=== PATIENT | male | born 1975 | race Caucasian/White ===

== ENCOUNTER 2022-02-01 12:00 | Inpatient (IN) | payer BC, SELFPAY ==
[~2022-02-01] VITALS: Ht 188 cm; Wt 125.8 kg
[2022-02-01 15:10] VITALS: BP 165/93
[2022-02-01] MEDS ORDERED: methocarbamoL 500 MG TAB PEG PRN (15:45)
[2022-02-01] MEDS ORDERED: RAMELTEON 8 MG TAB (ROZEREM) PEG PRN (15:45)
[2022-02-01] MEDS ORDERED: GLUCAGON INJ 1MG VIAL SC PRN (15:45)
[2022-02-01] MEDS ORDERED: ACETAMINOPHEN 325 MG/10.15 ML UDC GT PRN ×2 (15:45→16:35)
[2022-02-01] MEDS ORDERED: GLUCOSE 4GM CHEW TABLET PO PRN (15:45)
[2022-02-01] MEDS ORDERED: DEXTROSE 50% 50 ML SYRINGE IV PRN (15:45)
[2022-02-01] MEDS ORDERED: oxyCODONE 5MG TAB PEG PRN (15:45)
[2022-02-01] MEDS: REMEDY PHYTOPLEX Z-GUARD PASTE 113GM TUBE (FROM STOREROOM PRODUCT) TOP SCH ×2 (16:29→21:00)
[2022-02-01] MEDS ORDERED: OMEP40CA5 PO (16:31)
[2022-02-01] MEDS ORDERED: FURO20TA2 PO (16:31)
[2022-02-01] MEDS ORDERED: TRES1INJ2 SQ (16:31)
[2022-02-01] MEDS ORDERED: LISI40TA4 PO (16:31)
[2022-02-01] MEDS ORDERED: JARD1TAB PO (16:31)
[2022-02-01] MEDS ORDERED: ALBU8.5H INH (16:31)
[2022-02-01] MEDS: ACETAMINOPHEN 325 MG/10.15 ML UDC GT SCH ×2 (16:35→21:18)
[2022-02-01] MEDS ORDERED: LOPI600T PO (16:52)
[2022-02-01] MEDS ORDERED: ATOR80TA59 PO (16:52)
[2022-02-01] MEDS ORDERED: LOVE1INJ SC (16:52)
[2022-02-01] MEDS ORDERED: NICOINH INH (16:52)
[2022-02-01] MEDS ORDERED: ZOVI5CRE4 TOP (16:52)
[2022-02-01] MEDS ORDERED: CLOP75TA2 PO (16:52)
[2022-02-01] MEDS ORDERED: NICO21DI38 TOP (16:52)
[2022-02-01] MEDS ORDERED: MUCI600T31 PO (16:52)
[2022-02-01] MEDS ORDERED: AMLO1TAB25 PO (16:52)
[2022-02-01] MEDS ORDERED: TGTSUS2 PO (16:52)
[2022-02-01] MEDS ORDERED: MINE3.5O12 OU (16:52)
[2022-02-01] MEDS ORDERED: ASPI-161 PO (16:52)
[2022-02-01] MEDS ORDERED: METO1TAB7 PO (16:52)
[2022-02-01] MEDS ORDERED: RA M10TA PO (16:52)
[2022-02-01] MEDS ORDERED: VENL150C43 PO (16:52)
[2022-02-01] MEDS ORDERED: METH-1164 PO (16:52)
[2022-02-01] MEDS ORDERED: HOME MED LIST COMPLETE! XX SCH (16:55)
[2022-02-01] MEDS: INSULIN LISPRO (NovoLOG) PER UNIT SC SCH ×2 (17:11→21:00)
[2022-02-01] MEDS: SUCRALFATE SUSP 1GM/10ML UD PEG SCH ×2 (17:27→21:16)
[2022-02-01] MEDS: MAGIC MOUTHWASH SUSPENSION BTL SSP SCH (17:27)
[2022-02-01 19:23] VITALS: BP 138/95
[2022-02-01] MEDS: COMBIVENT RESPIMAT 100-20MCG INHALER 4GM INH SCH (19:57)
[2022-02-01] MEDS ORDERED: COMBIVENT RESPIMAT 100-20MCG INHALER 4GM INH SCH (20:00)
[2022-02-01] MEDS: RAMELTEON 8 MG TAB (ROZEREM) PEG SCH ×2 (21:00→21:16)
[2022-02-01] MEDS: VENLAFAXINE 37.5 MG TAB PEG SCH (21:16)
[2022-02-01] MEDS: METOPROLOL TART 50 MG TAB PEG SCH (21:16)
[2022-02-01] MEDS: MECLIZINE 12.5 MG TAB PEG SCH (21:16)
[2022-02-01] MEDS: LEVEMIR (INSULIN DETEMIR) 1 UNITS/0.01ML SC SCH (21:18)
[2022-02-01] MEDS: POLYVINYL ALCOHOL OPHTH SOLN 15 ML(LIQUITEARS) OU SCH (21:18)
[2022-02-02 05:28] VITALS: BP 165/79
[2022-02-02] MEDS: COMBIVENT RESPIMAT 100-20MCG INHALER 4GM INH SCH ×4 (05:37→20:00)
[2022-02-02 07:21] LABS: BASO # 0.1 10^3/uL (0.0-0.2); BASO % 0.9 % (0.0-1.0); EOS # 0.2 10^3/uL (0.0-0.5); EOS % 2.1 % (0.0-3.0); HEMOGLOBIN 15.1 g/dl (13.5-17.5); LYMPH # 2.2 10^3/uL (1.5-5.0); LYMPH % 21.4 % (24.0-44.0); MEAN CORPUSCULAR HEMOGLOBIN 27.8 pg (27.0-33.0); MEAN CORPUSCULAR HGB CONC 31.5 g/dl (32.0-36.5); MEAN CORPUSCULAR VOLUME 88.4 fl (80.0-96.0); MONO # 0.9 10^3/uL (0.0-0.8); MONO % 8.9 % (2.0-8.0); NEUTROPHILS # 6.8 10^3/uL (1.5-8.5); NEUTROPHILS % 66.2 % (36.0-66.0); PLATELET COUNT, AUTOMATED 326 10^3/uL (150-450); RED BLOOD COUNT 5.43 10^6/uL (4.30-6.10); WHITE BLOOD COUNT 10.2 10^3/uL (4.0-10.0)
[2022-02-02 07:45] LABS: ALBUMIN 3.2 GM/DL (3.2-5.2); ALT/SGPT 49 U/L (12-78); BILIRUBIN,TOTAL 0.7 MG/DL (0.2-1.0); BLOOD UREA NITROGEN 14 MG/DL (7-18); CALCIUM LEVEL 11.8 MG/DL (8.5-10.1); CARBON DIOXIDE LEVEL 34 MEQ/L (21-32); CHLORIDE LEVEL 103 MEQ/L (98-107); CREATININE FOR GFR 0.78 MG/DL (0.70-1.30); GLOMERULAR FILTRATION RATE > 60.0 (>60); GLUCOSE, FASTING 131 MG/DL (70-100); POTASSIUM SERUM 4.6 MEQ/L (3.5-5.1); SODIUM LEVEL 140 MEQ/L (136-145); TOTAL PROTEIN 6.8 GM/DL (6.4-8.2)
[2022-02-02] MEDS: LEVEMIR (INSULIN DETEMIR) 1 UNITS/0.01ML SC SCH ×2 (08:41→20:09)
[2022-02-02] MEDS: ENOXAPARIN 40MG/0.4ML SYRINGE (J1650 PER 10MG) SC SCH (08:42)
[2022-02-02] MEDS: INSULIN LISPRO (NovoLOG) PER UNIT SC SCH ×4 (08:42→20:10)
[2022-02-02] MEDS: MAGIC MOUTHWASH SUSPENSION BTL SSP SCH ×3 (08:42→16:38)
[2022-02-02] MEDS: MECLIZINE 12.5 MG TAB PEG SCH ×3 (08:42→20:08)
[2022-02-02] MEDS: OMEPRAZOLE SUSPENSION 20MG 10ML ORAL SYRINGE PEG SCH (08:42)
[2022-02-02] MEDS: ASPIRIN 81 MG CHEW TABLET PEG SCH (08:43)
[2022-02-02] MEDS: VENLAFAXINE 37.5 MG TAB PEG SCH ×2 (08:43→20:08)
[2022-02-02] MEDS: CLOPIDOGREL 75 MG TAB PEG SCH (08:43)
[2022-02-02] MEDS: LORATADINE 10 MG TAB PEG SCH (08:43)
[2022-02-02] MEDS: ACETAMINOPHEN 325 MG/10.15 ML UDC GT SCH ×3 (08:43→20:14)
[2022-02-02] MEDS: SUCRALFATE SUSP 1GM/10ML UD PEG SCH ×4 (08:43→20:08)
[2022-02-02] MEDS: FUROSEMIDE 20 MG TAB PO SCH (08:44)
[2022-02-02] MEDS: ATORVASTATIN 20 MG TAB PEG SCH (08:44)
[2022-02-02] MEDS: NICOTINE 21MG/24HR 1 EA TRANSDERMAL TD SCH (08:45)
[2022-02-02] MEDS: METOPROLOL TART 50 MG TAB PEG SCH ×2 (08:45→20:09)
[2022-02-02] MEDS: REMEDY PHYTOPLEX Z-GUARD PASTE 113GM TUBE (FROM STOREROOM PRODUCT) TOP SCH ×4 (08:45→20:10)
[2022-02-02] MEDS: POLYVINYL ALCOHOL OPHTH SOLN 15 ML(LIQUITEARS) OU SCH ×3 (08:45→20:09)
[2022-02-02] MEDS: TIOTROPIUM INHALER/CAPSULE (SPIRIVA) INH SCH (11:32)
[2022-02-02 14:00] VITALS: BP 147/91
[2022-02-02] MEDS ORDERED: traZODone 25MG PER 1/2 TABLET PO PRN (16:50)
[2022-02-02 19:29] VITALS: BP 178/108
[2022-02-02] MEDS: traZODone 25MG PER 1/2 TABLET PEG SCH (20:08)
[2022-02-02] MEDS: guaiFENesin SYRUP 200MG 10ML UDC PEG PRN (20:08)
[2022-02-03 05:04] VITALS: BP 168/103
[2022-02-03 06:50] LABS: BASO # 0.1 10^3/uL (0.0-0.2); BASO % 0.5 % (0.0-1.0); EOS # 0.2 10^3/uL (0.0-0.5); EOS % 2.3 % (0.0-3.0); HEMATOCRIT 45.8 % (42.0-52.0); HEMOGLOBIN 14.7 g/dl (13.5-17.5); LYMPH # 2.2 10^3/uL (1.5-5.0); LYMPH % 21.5 % (24.0-44.0); MEAN CORPUSCULAR HGB CONC 32.1 g/dl (32.0-36.5); MEAN CORPUSCULAR VOLUME 87.2 fl (80.0-96.0); MONO # 0.9 10^3/uL (0.0-0.8); MONO % 8.2 % (2.0-8.0); PLATELET COUNT, AUTOMATED 311 10^3/uL (150-450); RED BLOOD COUNT 5.25 10^6/uL (4.30-6.10); WHITE BLOOD COUNT 10.4 10^3/uL (4.0-10.0)
[2022-02-03 07:19] LABS: BLOOD UREA NITROGEN 13 MG/DL (7-18); CARBON DIOXIDE LEVEL 32 MEQ/L (21-32); CHLORIDE LEVEL 104 MEQ/L (98-107); CREATININE FOR GFR 0.69 MG/DL (0.70-1.30); GLOMERULAR FILTRATION RATE > 60.0 (>60); GLUCOSE, FASTING 122 MG/DL (70-100); POTASSIUM SERUM 3.8 MEQ/L (3.5-5.1); SODIUM LEVEL 142 MEQ/L (136-145)
[2022-02-03] MEDS: COMBIVENT RESPIMAT 100-20MCG INHALER 4GM INH SCH ×3 (07:23→19:49)
[2022-02-03] MEDS: TIOTROPIUM INHALER/CAPSULE (SPIRIVA) INH SCH (07:23)
[2022-02-03] MEDS: SUCRALFATE SUSP 1GM/10ML UD PEG SCH ×4 (08:04→21:12)
[2022-02-03] MEDS: guaiFENesin SYRUP 200MG 10ML UDC PEG PRN (08:05)
[2022-02-03] MEDS: MAGIC MOUTHWASH SUSPENSION BTL SSP SCH ×3 (08:05→17:14)
[2022-02-03] MEDS: MECLIZINE 12.5 MG TAB PEG SCH (08:06)
[2022-02-03] MEDS: CLOPIDOGREL 75 MG TAB PEG SCH (08:07)
[2022-02-03] MEDS: METOPROLOL TART 50 MG TAB PEG SCH ×2 (08:07→19:57)
[2022-02-03] MEDS: LORATADINE 10 MG TAB PEG SCH (08:07)
[2022-02-03] MEDS: FUROSEMIDE 20 MG TAB PO SCH (08:07)
[2022-02-03] MEDS: VENLAFAXINE 37.5 MG TAB PEG SCH ×2 (08:07→21:13)
[2022-02-03] MEDS: OMEPRAZOLE SUSPENSION 20MG 10ML ORAL SYRINGE PEG SCH (08:08)
[2022-02-03] MEDS: ASPIRIN 81 MG CHEW TABLET PEG SCH (08:08)
[2022-02-03] MEDS: NICOTINE 21MG/24HR 1 EA TRANSDERMAL TD SCH (08:08)
[2022-02-03] MEDS: ATORVASTATIN 20 MG TAB PEG SCH (08:08)
[2022-02-03] MEDS: INSULIN LISPRO (NovoLOG) PER UNIT SC SCH ×4 (08:09→20:56)
[2022-02-03] MEDS: ENOXAPARIN 40MG/0.4ML SYRINGE (J1650 PER 10MG) SC SCH (08:10)
[2022-02-03] MEDS: POLYVINYL ALCOHOL OPHTH SOLN 15 ML(LIQUITEARS) OU SCH ×3 (08:10→21:13)
[2022-02-03] MEDS: ACETAMINOPHEN 325 MG/10.15 ML UDC GT SCH ×3 (08:20→21:12)
[2022-02-03] MEDS: LEVEMIR (INSULIN DETEMIR) 1 UNITS/0.01ML SC SCH ×2 (08:21→21:13)
[2022-02-03] MEDS: REMEDY PHYTOPLEX Z-GUARD PASTE 113GM TUBE (FROM STOREROOM PRODUCT) TOP SCH ×4 (08:24→21:00)
[2022-02-03 14:00] VITALS: BP 160/101
[2022-02-03 15:00] VITALS: BP 152/88
[2022-02-03] MEDS: DOXYCYCLINE HYCLATE 100MG TABLET PEG SCH ×2 (15:11→21:13)
[2022-02-03] MEDS: LACTOBACILLUS ACIDOPHILUS CAP (BACID) PEG SCH ×2 (15:12→21:13)
[2022-02-03] MEDS: MECLIZINE 25 MG TABLET PEG SCH ×2 (15:12→21:13)
[2022-02-03] MEDS: traZODone 25MG PER 1/2 TABLET PEG SCH (19:58)
[2022-02-03 20:00] VITALS: BP 198/105
[2022-02-03 21:55] VITALS: BP 173/104
[2022-02-03] MEDS: lisinopriL 40MG TAB PO SCH (23:01)
[2022-02-04] VITALS (7 sets, daily range): BP systolic 122–176; BP diastolic 70–118
[2022-02-04] MEDS ORDERED: cloNIDine 0.1MG TABLET PO ONE (01:00)
[2022-02-04] MEDS: INSULIN LISPRO (NovoLOG) PER UNIT SC SCH ×4 (07:30→20:04)
[2022-02-04] MEDS: LEVEMIR (INSULIN DETEMIR) 1 UNITS/0.01ML SC SCH ×2 (07:37→20:46)
[2022-02-04] MEDS: REMEDY PHYTOPLEX Z-GUARD PASTE 113GM TUBE (FROM STOREROOM PRODUCT) TOP SCH ×4 (07:38→20:05)
[2022-02-04] MEDS: NICOTINE 21MG/24HR 1 EA TRANSDERMAL TD SCH (08:32)
[2022-02-04] MEDS: MAGIC MOUTHWASH SUSPENSION BTL SSP SCH ×3 (08:32→16:47)
[2022-02-04] MEDS: VENLAFAXINE 37.5 MG TAB PEG SCH ×2 (08:33→20:45)
[2022-02-04] MEDS: ACETAMINOPHEN 325 MG/10.15 ML UDC GT SCH ×3 (08:33→20:44)
[2022-02-04] MEDS: DOXYCYCLINE HYCLATE 100MG TABLET PEG SCH ×2 (08:33→20:44)
[2022-02-04] MEDS: LACTOBACILLUS ACIDOPHILUS CAP (BACID) PEG SCH ×3 (08:33→20:45)
[2022-02-04] MEDS: OMEPRAZOLE SUSPENSION 20MG 10ML ORAL SYRINGE PEG SCH (08:33)
[2022-02-04] MEDS: ENOXAPARIN 40MG/0.4ML SYRINGE (J1650 PER 10MG) SC SCH (08:34)
[2022-02-04] MEDS: SUCRALFATE SUSP 1GM/10ML UD PEG SCH ×4 (08:34→20:44)
[2022-02-04] MEDS: ASPIRIN 81 MG CHEW TABLET PEG SCH (08:34)
[2022-02-04] MEDS: LORATADINE 10 MG TAB PEG SCH (08:34)
[2022-02-04] MEDS: FUROSEMIDE 20 MG TAB PO SCH (08:34)
[2022-02-04] MEDS: CLOPIDOGREL 75 MG TAB PEG SCH (08:34)
[2022-02-04] MEDS: MECLIZINE 25 MG TABLET PEG SCH ×3 (08:34→20:45)
[2022-02-04] MEDS: METOPROLOL TART 50 MG TAB PEG SCH ×2 (08:34→20:45)
[2022-02-04] MEDS: ATORVASTATIN 20 MG TAB PEG SCH (08:34)
[2022-02-04] MEDS: POLYVINYL ALCOHOL OPHTH SOLN 15 ML(LIQUITEARS) OU SCH ×3 (08:35→20:46)
[2022-02-04] MEDS: TIOTROPIUM INHALER/CAPSULE (SPIRIVA) INH SCH (08:48)
[2022-02-04] MEDS: COMBIVENT RESPIMAT 100-20MCG INHALER 4GM INH SCH ×4 (08:48→20:19)
[2022-02-04] MEDS: lisinopriL 40MG TAB PO SCH (20:45)
[2022-02-04] MEDS: traZODone 25MG PER 1/2 TABLET PEG SCH (20:45)
[2022-02-05 06:00] VITALS: BP 124/78
[2022-02-05] MEDS: TIOTROPIUM INHALER/CAPSULE (SPIRIVA) INH SCH (07:17)
[2022-02-05] MEDS: COMBIVENT RESPIMAT 100-20MCG INHALER 4GM INH SCH ×4 (07:18→20:00)
[2022-02-05] MEDS: REMEDY PHYTOPLEX Z-GUARD PASTE 113GM TUBE (FROM STOREROOM PRODUCT) TOP SCH ×4 (08:20→20:55)
[2022-02-05] MEDS: INSULIN LISPRO (NovoLOG) PER UNIT SC SCH ×4 (08:40→20:55)
[2022-02-05] MEDS: ATORVASTATIN 20 MG TAB PEG SCH (08:40)
[2022-02-05] MEDS: MECLIZINE 25 MG TABLET PEG SCH ×3 (08:40→20:49)
[2022-02-05] MEDS: NICOTINE 21MG/24HR 1 EA TRANSDERMAL TD SCH (08:40)
[2022-02-05] MEDS: LACTOBACILLUS ACIDOPHILUS CAP (BACID) PEG SCH ×3 (08:40→20:51)
[2022-02-05] MEDS: VENLAFAXINE 37.5 MG TAB PEG SCH ×2 (08:41→20:51)
[2022-02-05] MEDS: OMEPRAZOLE SUSPENSION 20MG 10ML ORAL SYRINGE PEG SCH (08:41)
[2022-02-05] MEDS: METOPROLOL TART 50 MG TAB PEG SCH ×2 (08:41→20:50)
[2022-02-05] MEDS: ASPIRIN 81 MG CHEW TABLET PEG SCH (08:41)
[2022-02-05] MEDS: ACETAMINOPHEN 325 MG/10.15 ML UDC GT SCH ×3 (08:41→20:49)
[2022-02-05] MEDS: SUCRALFATE SUSP 1GM/10ML UD PEG SCH ×4 (08:41→20:50)
[2022-02-05] MEDS: DOXYCYCLINE HYCLATE 100MG TABLET PEG SCH ×2 (08:42→20:50)
[2022-02-05] MEDS: FUROSEMIDE 20 MG TAB PO SCH (08:42)
[2022-02-05] MEDS: CLOPIDOGREL 75 MG TAB PEG SCH (08:42)
[2022-02-05] MEDS: LORATADINE 10 MG TAB PEG SCH (08:42)
[2022-02-05] MEDS: LEVEMIR (INSULIN DETEMIR) 1 UNITS/0.01ML SC SCH ×2 (08:42→20:50)
[2022-02-05] MEDS: MAGIC MOUTHWASH SUSPENSION BTL SSP SCH ×3 (08:43→16:31)
[2022-02-05] MEDS: POLYVINYL ALCOHOL OPHTH SOLN 15 ML(LIQUITEARS) OU SCH ×3 (09:00→20:58)
[2022-02-05] MEDS: ENOXAPARIN 40MG/0.4ML SYRINGE (J1650 PER 10MG) SC SCH (09:12)
[2022-02-05 14:00] VITALS: BP 126/80
[2022-02-05 20:00] VITALS: BP 157/86
[2022-02-05] MEDS: zolPIDEM TARTRATE 5 MG TAB PEG SCH (20:50)
[2022-02-05] MEDS: lisinopriL 40MG TAB PO SCH (20:55)
[2022-02-06 06:00] VITALS: BP 152/94
[2022-02-06] MEDS: INSULIN LISPRO (NovoLOG) PER UNIT SC SCH ×4 (07:30→20:26)
[2022-02-06] MEDS: TIOTROPIUM INHALER/CAPSULE (SPIRIVA) INH SCH (07:40)
[2022-02-06] MEDS: COMBIVENT RESPIMAT 100-20MCG INHALER 4GM INH SCH ×4 (07:40→21:16)
[2022-02-06] MEDS: LEVEMIR (INSULIN DETEMIR) 1 UNITS/0.01ML SC SCH ×2 (09:00→20:26)
[2022-02-06] MEDS: NICOTINE 21MG/24HR 1 EA TRANSDERMAL TD SCH (09:14)
[2022-02-06] MEDS: REMEDY PHYTOPLEX Z-GUARD PASTE 113GM TUBE (FROM STOREROOM PRODUCT) TOP SCH ×4 (09:14→20:26)
[2022-02-06] MEDS: ENOXAPARIN 40MG/0.4ML SYRINGE (J1650 PER 10MG) SC SCH (09:15)
[2022-02-06] MEDS: ATORVASTATIN 20 MG TAB PEG SCH (09:15)
[2022-02-06] MEDS: LACTOBACILLUS ACIDOPHILUS CAP (BACID) PEG SCH ×3 (09:16→20:21)
[2022-02-06] MEDS: ASPIRIN 81 MG CHEW TABLET PEG SCH (09:16)
[2022-02-06] MEDS: MECLIZINE 25 MG TABLET PEG SCH ×3 (09:16→20:24)
[2022-02-06] MEDS: OMEPRAZOLE SUSPENSION 20MG 10ML ORAL SYRINGE PEG SCH (09:16)
[2022-02-06] MEDS: ACETAMINOPHEN 325 MG/10.15 ML UDC GT SCH ×3 (09:16→20:25)
[2022-02-06] MEDS: VENLAFAXINE 37.5 MG TAB PEG SCH ×2 (09:17→20:25)
[2022-02-06] MEDS: LORATADINE 10 MG TAB PEG SCH (09:17)
[2022-02-06] MEDS: FUROSEMIDE 20 MG TAB PO SCH (09:18)
[2022-02-06] MEDS: METOPROLOL TART 50 MG TAB PEG SCH ×2 (09:18→20:24)
[2022-02-06] MEDS: DOXYCYCLINE HYCLATE 100MG TABLET PEG SCH ×2 (09:18→20:24)
[2022-02-06] MEDS: CLOPIDOGREL 75 MG TAB PEG SCH (09:19)
[2022-02-06] MEDS: MAGIC MOUTHWASH SUSPENSION BTL SSP SCH ×3 (09:20→16:50)
[2022-02-06] MEDS: POLYVINYL ALCOHOL OPHTH SOLN 15 ML(LIQUITEARS) OU SCH ×3 (09:20→20:26)
[2022-02-06] MEDS: SUCRALFATE SUSP 1GM/10ML UD PEG SCH ×4 (09:22→20:25)
[2022-02-06 10:51] LABS: BASO # 0.1 10^3/uL (0.0-0.2); BASO % 0.6 % (0.0-1.0); EOS # 0.2 10^3/uL (0.0-0.5); EOS % 1.2 % (0.0-3.0); HEMATOCRIT 48.5 % (42.0-52.0); HEMOGLOBIN 15.5 g/dl (13.5-17.5); LYMPH # 2.3 10^3/uL (1.5-5.0); LYMPH % 17.5 % (24.0-44.0); MEAN CORPUSCULAR HEMOGLOBIN 27.8 pg (27.0-33.0); MEAN CORPUSCULAR VOLUME 87.1 fl (80.0-96.0); MONO # 0.9 10^3/uL (0.0-0.8); MONO % 6.9 % (2.0-8.0); NEUTROPHILS # 9.5 10^3/uL (1.5-8.5); NEUTROPHILS % 73.4 % (36.0-66.0); PLATELET COUNT, AUTOMATED 358 10^3/uL (150-450); RED BLOOD COUNT 5.57 10^6/uL (4.30-6.10)
[2022-02-06 11:21] LABS: BLOOD UREA NITROGEN 15 MG/DL (7-18); CALCIUM LEVEL 12.4 MG/DL (8.5-10.1); CARBON DIOXIDE LEVEL 29 MEQ/L (21-32); CHLORIDE LEVEL 105 MEQ/L (98-107); CREATININE FOR GFR 0.88 MG/DL (0.70-1.30); GLOMERULAR FILTRATION RATE > 60.0 (>60); GLUCOSE, FASTING 179 MG/DL (70-100); POTASSIUM SERUM 4.4 MEQ/L (3.5-5.1); SODIUM LEVEL 140 MEQ/L (136-145)
[2022-02-06 14:00] VITALS: BP 126/79
[2022-02-06 19:40] VITALS: BP 166/98
[2022-02-06] MEDS: zolPIDEM TARTRATE 5 MG TAB PEG SCH (20:24)
[2022-02-06] MEDS: lisinopriL 40MG TAB PO SCH (20:24)
[2022-02-07 05:00] VITALS: BP 154/95
[2022-02-07 06:36] LABS: BASO # 0.1 10^3/uL (0.0-0.2); BASO % 0.6 % (0.0-1.0); EOS # 0.2 10^3/uL (0.0-0.5); EOS % 2.1 % (0.0-3.0); HEMATOCRIT 45.8 % (42.0-52.0); HEMOGLOBIN 14.6 g/dl (13.5-17.5); LYMPH # 2.5 10^3/uL (1.5-5.0); LYMPH % 30.3 % (24.0-44.0); MEAN CORPUSCULAR HEMOGLOBIN 27.4 pg (27.0-33.0); MEAN CORPUSCULAR HGB CONC 31.9 g/dl (32.0-36.5); MEAN CORPUSCULAR VOLUME 86.1 fl (80.0-96.0); MONO # 0.8 10^3/uL (0.0-0.8); MONO % 9.6 % (2.0-8.0); NEUTROPHILS # 4.7 10^3/uL (1.5-8.5); PLATELET COUNT, AUTOMATED 283 10^3/uL (150-450); RED BLOOD COUNT 5.32 10^6/uL (4.30-6.10); WHITE BLOOD COUNT 8.2 10^3/uL (4.0-10.0)
[2022-02-07] MEDS: INSULIN LISPRO (NovoLOG) PER UNIT SC SCH ×4 (07:30→21:00)
[2022-02-07] MEDS: LEVEMIR (INSULIN DETEMIR) 1 UNITS/0.01ML SC SCH ×2 (07:34→21:25)
[2022-02-07] MEDS: COMBIVENT RESPIMAT 100-20MCG INHALER 4GM INH SCH ×4 (08:00→20:29)
[2022-02-07] MEDS: TIOTROPIUM INHALER/CAPSULE (SPIRIVA) INH SCH (08:00)
[2022-02-07] MEDS: REMEDY PHYTOPLEX Z-GUARD PASTE 113GM TUBE (FROM STOREROOM PRODUCT) TOP SCH ×4 (09:00→21:00)
[2022-02-07] MEDS: POLYVINYL ALCOHOL OPHTH SOLN 15 ML(LIQUITEARS) OU SCH ×3 (09:00→21:26)
[2022-02-07] MEDS: CLOPIDOGREL 75 MG TAB PEG SCH (09:13)
[2022-02-07] MEDS: LACTOBACILLUS ACIDOPHILUS CAP (BACID) PEG SCH ×3 (09:13→21:25)
[2022-02-07] MEDS: OMEPRAZOLE SUSPENSION 20MG 10ML ORAL SYRINGE PEG SCH (09:13)
[2022-02-07] MEDS: ACETAMINOPHEN 325 MG/10.15 ML UDC GT SCH ×3 (09:13→21:24)
[2022-02-07] MEDS: LORATADINE 10 MG TAB PEG SCH (09:14)
[2022-02-07] MEDS: ASPIRIN 81 MG CHEW TABLET PEG SCH (09:14)
[2022-02-07] MEDS: DOXYCYCLINE HYCLATE 100MG TABLET PEG SCH ×2 (09:14→21:25)
[2022-02-07] MEDS: VENLAFAXINE 37.5 MG TAB PEG SCH ×2 (09:14→21:23)
[2022-02-07] MEDS: ATORVASTATIN 20 MG TAB PEG SCH (09:14)
[2022-02-07] MEDS: SUCRALFATE SUSP 1GM/10ML UD PEG SCH ×4 (09:14→21:24)
[2022-02-07] MEDS: MECLIZINE 25 MG TABLET PEG SCH ×3 (09:14→21:25)
[2022-02-07] MEDS: FUROSEMIDE 20 MG TAB PO SCH (09:14)
[2022-02-07] MEDS: MAGIC MOUTHWASH SUSPENSION BTL SSP SCH ×3 (09:15→17:49)
[2022-02-07] MEDS: METOPROLOL TART 50 MG TAB PEG SCH ×2 (09:15→21:24)
[2022-02-07] MEDS: ENOXAPARIN 40MG/0.4ML SYRINGE (J1650 PER 10MG) SC SCH (09:16)
[2022-02-07] MEDS: NICOTINE 21MG/24HR 1 EA TRANSDERMAL TD SCH (09:16)
[2022-02-07] MEDS ORDERED: VARIBAR PUDDING 40% w/v 230ML TUBE As Ordered ONE (11:00)
[2022-02-07] MEDS ORDERED: VARIBAR NECTAR 40% w/v 240ML SUSP BTL As Ordered ONE (11:01)
[2022-02-07] MEDS ORDERED: E-Z-PAQUE 96% w/w SUSP 176GM BTL As Ordered ONE (11:01)
[2022-02-07] MEDS ORDERED: BARIUM SULFATE 700 MG TABLET (E-Z-DISK) As Ordered ONE (11:01)
[2022-02-07 14:00] VITALS: BP 140/87
[2022-02-07 20:00] VITALS: BP 170/110
[2022-02-07] MEDS: lisinopriL 40MG TAB PO SCH (21:24)
[2022-02-07] MEDS: zolPIDEM TARTRATE 5 MG TAB PEG SCH (21:25)
[2022-02-08 00:09] VITALS: BP 148/82
[2022-02-08 06:00] VITALS: BP 150/92
[2022-02-08 06:48] LABS: BASO # 0.1 10^3/uL (0.0-0.2); BASO % 0.6 % (0.0-1.0); EOS # 0.2 10^3/uL (0.0-0.5); EOS % 2.4 % (0.0-3.0); HEMATOCRIT 46.2 % (42.0-52.0); HEMOGLOBIN 14.9 g/dl (13.5-17.5); LYMPH # 2.5 10^3/uL (1.5-5.0); LYMPH % 28.4 % (24.0-44.0); MEAN CORPUSCULAR HEMOGLOBIN 28.1 pg (27.0-33.0); MEAN CORPUSCULAR HGB CONC 32.3 g/dl (32.0-36.5); MONO # 0.9 10^3/uL (0.0-0.8); MONO % 9.6 % (2.0-8.0); NEUTROPHILS # 5.2 10^3/uL (1.5-8.5); NEUTROPHILS % 58.7 % (36.0-66.0); PLATELET COUNT, AUTOMATED 299 10^3/uL (150-450); RED BLOOD COUNT 5.31 10^6/uL (4.30-6.10); WHITE BLOOD COUNT 8.9 10^3/uL (4.0-10.0)
[2022-02-08] MEDS: INSULIN LISPRO (NovoLOG) PER UNIT SC SCH ×4 (06:55→20:00)
[2022-02-08] MEDS: LEVEMIR (INSULIN DETEMIR) 1 UNITS/0.01ML SC SCH ×2 (06:56→20:22)
[2022-02-08 07:09] LABS: BLOOD UREA NITROGEN 12 MG/DL (7-18); CALCIUM LEVEL 11.3 MG/DL (8.5-10.1); CARBON DIOXIDE LEVEL 30 MEQ/L (21-32); CHLORIDE LEVEL 105 MEQ/L (98-107); CREATININE FOR GFR 0.63 MG/DL (0.70-1.30); GLOMERULAR FILTRATION RATE > 60.0 (>60); GLUCOSE, FASTING 112 MG/DL (70-100); POTASSIUM SERUM 4.2 MEQ/L (3.5-5.1); SODIUM LEVEL 139 MEQ/L (136-145)
[2022-02-08] MEDS: ACETAMINOPHEN 325 MG/10.15 ML UDC GT SCH ×3 (08:15→20:21)
[2022-02-08] MEDS: NICOTINE 21MG/24HR 1 EA TRANSDERMAL TD SCH (08:15)
[2022-02-08] MEDS: MAGIC MOUTHWASH SUSPENSION BTL SSP SCH ×3 (08:15→17:17)
[2022-02-08] MEDS: LORATADINE 10 MG TAB PEG SCH (08:16)
[2022-02-08] MEDS: VENLAFAXINE 37.5 MG TAB PEG SCH ×2 (08:16→20:20)
[2022-02-08] MEDS: FUROSEMIDE 20 MG TAB PO SCH (08:16)
[2022-02-08] MEDS: CLOPIDOGREL 75 MG TAB PEG SCH (08:16)
[2022-02-08] MEDS: LACTOBACILLUS ACIDOPHILUS CAP (BACID) PEG SCH ×3 (08:16→20:20)
[2022-02-08] MEDS: DOXYCYCLINE HYCLATE 100MG TABLET PEG SCH ×2 (08:16→20:20)
[2022-02-08] MEDS: SUCRALFATE SUSP 1GM/10ML UD PEG SCH ×4 (08:16→20:21)
[2022-02-08] MEDS: ATORVASTATIN 20 MG TAB PEG SCH (08:16)
[2022-02-08] MEDS: ASPIRIN 81 MG CHEW TABLET PEG SCH (08:16)
[2022-02-08] MEDS: METOPROLOL TART 50 MG TAB PEG SCH ×3 (08:16→20:21)
[2022-02-08] MEDS: ENOXAPARIN 40MG/0.4ML SYRINGE (J1650 PER 10MG) SC SCH (08:16)
[2022-02-08] MEDS: OMEPRAZOLE SUSPENSION 20MG 10ML ORAL SYRINGE PEG SCH (08:17)
[2022-02-08] MEDS: REMEDY PHYTOPLEX Z-GUARD PASTE 113GM TUBE (FROM STOREROOM PRODUCT) TOP SCH ×4 (08:17→20:22)
[2022-02-08] MEDS: MECLIZINE 25 MG TABLET PEG SCH ×3 (08:17→20:20)
[2022-02-08] MEDS: POLYVINYL ALCOHOL OPHTH SOLN 15 ML(LIQUITEARS) OU SCH ×3 (08:17→20:22)
[2022-02-08] MEDS: COMBIVENT RESPIMAT 100-20MCG INHALER 4GM INH SCH ×4 (09:30→20:55)
[2022-02-08 12:20] VITALS: BP 166/98
[2022-02-08] MEDS: **hydrALAZINE HCL** 25 MG TAB PO SCH ×2 (12:23→17:16)
[2022-02-08 14:30] VITALS: BP 165/93
[2022-02-08] MEDS: TIOTROPIUM INHALER/CAPSULE (SPIRIVA) INH SCH (15:00)
[2022-02-08] MEDS ORDERED: PILL CUTTER 1 EACH XX PRN (16:00)
[2022-02-08 17:15] VITALS: BP 167/94
[2022-02-08 20:00] VITALS: BP 147/86
[2022-02-08] MEDS: zolPIDEM TARTRATE 5 MG TAB PEG SCH (20:20)
[2022-02-08] MEDS: lisinopriL 40MG TAB PO SCH (20:20)
[2022-02-08] MEDS ORDERED: zolPIDEM TARTRATE 5 MG TAB PEG SCH (21:00)
[2022-02-09 00:49] VITALS: BP 158/88
[2022-02-09] MEDS: **hydrALAZINE HCL** 25 MG TAB PO SCH ×4 (01:05→17:40)
[2022-02-09 05:48] VITALS: BP 132/77
[2022-02-09] MEDS: INSULIN LISPRO (NovoLOG) PER UNIT SC SCH ×4 (07:30→19:55)
[2022-02-09] MEDS: REMEDY PHYTOPLEX Z-GUARD PASTE 113GM TUBE (FROM STOREROOM PRODUCT) TOP SCH ×4 (09:00→20:13)
[2022-02-09] MEDS: LEVEMIR (INSULIN DETEMIR) 1 UNITS/0.01ML SC SCH ×2 (09:00→20:13)
[2022-02-09] MEDS: ACETAMINOPHEN 325 MG/10.15 ML UDC GT SCH ×3 (09:09→20:12)
[2022-02-09] MEDS: NICOTINE 21MG/24HR 1 EA TRANSDERMAL TD SCH (09:09)
[2022-02-09] MEDS: LORATADINE 10 MG TAB PEG SCH (09:09)
[2022-02-09] MEDS: LACTOBACILLUS ACIDOPHILUS CAP (BACID) PEG SCH ×3 (09:10→20:13)
[2022-02-09] MEDS: MECLIZINE 25 MG TABLET PEG SCH ×3 (09:10→20:12)
[2022-02-09] MEDS: DOXYCYCLINE HYCLATE 100MG TABLET PEG SCH ×2 (09:10→20:12)
[2022-02-09] MEDS: ASPIRIN 81 MG CHEW TABLET PEG SCH (09:10)
[2022-02-09] MEDS: FUROSEMIDE 20 MG TAB PO SCH (09:11)
[2022-02-09] MEDS: METOPROLOL TART 50 MG TAB PEG SCH ×3 (09:11→20:13)
[2022-02-09] MEDS: CLOPIDOGREL 75 MG TAB PEG SCH (09:11)
[2022-02-09] MEDS: VENLAFAXINE 37.5 MG TAB PEG SCH ×2 (09:11→20:11)
[2022-02-09] MEDS: ENOXAPARIN 40MG/0.4ML SYRINGE (J1650 PER 10MG) SC SCH (09:11)
[2022-02-09] MEDS: ATORVASTATIN 20 MG TAB PEG SCH (09:11)
[2022-02-09] MEDS: OMEPRAZOLE SUSPENSION 20MG 10ML ORAL SYRINGE PEG SCH ×2 (09:11→20:11)
[2022-02-09] MEDS: POLYVINYL ALCOHOL OPHTH SOLN 15 ML(LIQUITEARS) OU SCH ×3 (09:12→20:13)
[2022-02-09] MEDS: MAGIC MOUTHWASH SUSPENSION BTL SSP SCH ×3 (09:12→17:41)
[2022-02-09] MEDS: SUCRALFATE SUSP 1GM/10ML UD PEG SCH ×4 (09:12→20:11)
[2022-02-09] MEDS: COMBIVENT RESPIMAT 100-20MCG INHALER 4GM INH SCH ×4 (09:35→19:41)
[2022-02-09] MEDS: TIOTROPIUM INHALER/CAPSULE (SPIRIVA) INH SCH (11:25)
[2022-02-09 11:42] VITALS: BP 118/78
[2022-02-09 14:00] VITALS: BP 163/92
[2022-02-09 16:35] VITALS: BP 148/85
[2022-02-09 20:00] VITALS: BP 152/98
[2022-02-09] MEDS: lisinopriL 40MG TAB PO SCH (20:12)
[2022-02-09] MEDS: zolPIDEM TARTRATE 5 MG TAB PEG SCH (20:12)
[2022-02-10] MEDS: **hydrALAZINE HCL** 25 MG TAB PO SCH ×2 (00:47→06:31)
[2022-02-10 06:00] VITALS: BP 158/90
[2022-02-10] MEDS: COMBIVENT RESPIMAT 100-20MCG INHALER 4GM INH SCH ×4 (07:25→19:22)
[2022-02-10] MEDS: TIOTROPIUM INHALER/CAPSULE (SPIRIVA) INH SCH (07:25)
[2022-02-10] MEDS: INSULIN LISPRO (NovoLOG) PER UNIT SC SCH ×4 (07:30→20:44)
[2022-02-10] MEDS: LEVEMIR (INSULIN DETEMIR) 1 UNITS/0.01ML SC SCH ×2 (08:24→20:42)
[2022-02-10] MEDS: REMEDY PHYTOPLEX Z-GUARD PASTE 113GM TUBE (FROM STOREROOM PRODUCT) TOP SCH ×4 (09:00→20:43)
[2022-02-10] MEDS: POLYVINYL ALCOHOL OPHTH SOLN 15 ML(LIQUITEARS) OU SCH ×3 (09:00→20:42)
[2022-02-10 09:48] LABS: BASO # 0.1 10^3/uL (0.0-0.2); BASO % 0.4 % (0.0-1.0); EOS # 0.2 10^3/uL (0.0-0.5); EOS % 0.9 % (0.0-3.0); HEMATOCRIT 46.6 % (42.0-52.0); HEMOGLOBIN 15.1 g/dl (13.5-17.5); MEAN CORPUSCULAR HEMOGLOBIN 27.7 pg (27.0-33.0); MEAN CORPUSCULAR HGB CONC 32.4 g/dl (32.0-36.5); MEAN CORPUSCULAR VOLUME 85.3 fl (80.0-96.0); MONO # 0.9 10^3/uL (0.0-0.8); MONO % 5.5 % (2.0-8.0); NEUTROPHILS # 13.6 10^3/uL (1.5-8.5); NEUTROPHILS % 80.8 % (36.0-66.0); PLATELET COUNT, AUTOMATED 298 10^3/uL (150-450); RED BLOOD COUNT 5.46 10^6/uL (4.30-6.10); WHITE BLOOD COUNT 16.8 10^3/uL (4.0-10.0)
[2022-02-10] MEDS: NICOTINE 21MG/24HR 1 EA TRANSDERMAL TD SCH (09:48)
[2022-02-10] MEDS: ACETAMINOPHEN 325 MG/10.15 ML UDC GT SCH ×3 (09:49→20:41)
[2022-02-10] MEDS: SUCRALFATE SUSP 1GM/10ML UD PEG SCH ×4 (09:49→20:41)
[2022-02-10] MEDS: OMEPRAZOLE SUSPENSION 20MG 10ML ORAL SYRINGE PEG SCH ×2 (09:50→20:40)
[2022-02-10] MEDS: MAGIC MOUTHWASH SUSPENSION BTL SSP SCH ×3 (09:50→18:39)
[2022-02-10] MEDS: ENOXAPARIN 40MG/0.4ML SYRINGE (J1650 PER 10MG) SC SCH (09:50)
[2022-02-10] MEDS: VENLAFAXINE 37.5 MG TAB PEG SCH ×2 (09:51→20:40)
[2022-02-10] MEDS: ASPIRIN 81 MG CHEW TABLET PEG SCH (09:51)
[2022-02-10] MEDS: MECLIZINE 25 MG TABLET PEG SCH ×3 (09:51→20:40)
[2022-02-10] MEDS: CLOPIDOGREL 75 MG TAB PEG SCH (09:51)
[2022-02-10] MEDS: LORATADINE 10 MG TAB PEG SCH (09:51)
[2022-02-10] MEDS: LACTOBACILLUS ACIDOPHILUS CAP (BACID) PEG SCH ×3 (09:51→20:40)
[2022-02-10] MEDS: ATORVASTATIN 20 MG TAB PEG SCH (09:51)
[2022-02-10] MEDS: METOPROLOL TART 50 MG TAB PEG SCH ×3 (09:52→20:41)
[2022-02-10] MEDS: FUROSEMIDE 20 MG TAB PO SCH (09:52)
[2022-02-10 12:00] VITALS: BP 143/80
[2022-02-10 12:20] LABS: BLOOD UREA NITROGEN 10 MG/DL (7-18); CALCIUM LEVEL 11.5 MG/DL (8.5-10.1); CARBON DIOXIDE LEVEL 24 MEQ/L (21-32); CHLORIDE LEVEL 103 MEQ/L (98-107); CREATININE FOR GFR 0.73 MG/DL (0.70-1.30); GLOMERULAR FILTRATION RATE > 60.0 (>60); GLUCOSE, FASTING 111 MG/DL (70-100); POTASSIUM SERUM 4.5 MEQ/L (3.5-5.1); SODIUM LEVEL 136 MEQ/L (136-145)
[2022-02-10] MEDS: **hydrALAZINE** 50 MG TAB PO SCH ×3 (12:57→23:14)
[2022-02-10 14:00] VITALS: BP 136/76
[2022-02-10] MEDS: VANICREAM MOISTURIZING SKIN CREAM 113GM TUBE TOP SCH ×2 (14:00→20:43)
[2022-02-10] MEDS: ACYCLOVIR 200 MG CAPSULE PEG SCH ×2 (16:17→20:40)
[2022-02-10 17:40] VITALS: BP 187/88
[2022-02-10 19:30] VITALS: BP 166/91
[2022-02-10] MEDS: lisinopriL 40MG TAB PO SCH (20:40)
[2022-02-10] MEDS: zolPIDEM TARTRATE 5 MG TAB PEG SCH (20:44)
[2022-02-10 23:08] VITALS: BP 176/91
[2022-02-11 05:15] VITALS: BP 132/76
[2022-02-11 06:12] LABS: BASO # 0.1 10^3/uL (0.0-0.2); BASO % 0.4 % (0.0-1.0); EOS # 0.2 10^3/uL (0.0-0.5); EOS % 1.9 % (0.0-3.0); HEMOGLOBIN 13.9 g/dl (13.5-17.5); LYMPH # 2.2 10^3/uL (1.5-5.0); LYMPH % 18.3 % (24.0-44.0); MEAN CORPUSCULAR HEMOGLOBIN 27.4 pg (27.0-33.0); MEAN CORPUSCULAR HGB CONC 32.3 g/dl (32.0-36.5); MEAN CORPUSCULAR VOLUME 84.8 fl (80.0-96.0); MONO % 8.1 % (2.0-8.0); NEUTROPHILS # 8.4 10^3/uL (1.5-8.5); NEUTROPHILS % 70.9 % (36.0-66.0); PLATELET COUNT, AUTOMATED 260 10^3/uL (150-450); RED BLOOD COUNT 5.07 10^6/uL (4.30-6.10); WHITE BLOOD COUNT 11.9 10^3/uL (4.0-10.0)
[2022-02-11] MEDS: **hydrALAZINE** 50 MG TAB PO SCH ×4 (06:19→23:12)
[2022-02-11] MEDS: SUCRALFATE SUSP 1GM/10ML UD PEG SCH ×4 (07:31→20:28)
[2022-02-11] MEDS: OMEPRAZOLE SUSPENSION 20MG 10ML ORAL SYRINGE PEG SCH ×2 (07:31→20:28)
[2022-02-11] MEDS: MAGIC MOUTHWASH SUSPENSION BTL SSP SCH ×3 (07:31→18:01)
[2022-02-11] MEDS: INSULIN LISPRO (NovoLOG) PER UNIT SC SCH ×4 (07:31→20:29)
[2022-02-11] MEDS: ATORVASTATIN 20 MG TAB PEG SCH (07:32)
[2022-02-11] MEDS: LACTOBACILLUS ACIDOPHILUS CAP (BACID) PEG SCH ×3 (07:32→20:25)
[2022-02-11] MEDS: ASPIRIN 81 MG CHEW TABLET PEG SCH (07:32)
[2022-02-11] MEDS: VENLAFAXINE 37.5 MG TAB PEG SCH ×2 (07:32→20:27)
[2022-02-11] MEDS: ACYCLOVIR 200 MG CAPSULE PEG SCH ×3 (07:33→20:28)
[2022-02-11] MEDS: FUROSEMIDE 20 MG TAB PO SCH (07:33)
[2022-02-11] MEDS: ENOXAPARIN 40MG/0.4ML SYRINGE (J1650 PER 10MG) SC SCH (07:34)
[2022-02-11] MEDS: REMEDY PHYTOPLEX Z-GUARD PASTE 113GM TUBE (FROM STOREROOM PRODUCT) TOP SCH ×4 (07:35→20:30)
[2022-02-11] MEDS: POLYVINYL ALCOHOL OPHTH SOLN 15 ML(LIQUITEARS) OU SCH ×3 (07:35→20:30)
[2022-02-11] MEDS: VANICREAM MOISTURIZING SKIN CREAM 113GM TUBE TOP SCH ×2 (07:37→20:30)
[2022-02-11] MEDS: CLOPIDOGREL 75 MG TAB PEG SCH (07:38)
[2022-02-11] MEDS: MECLIZINE 25 MG TABLET PEG SCH ×3 (07:38→20:26)
[2022-02-11] MEDS: LORATADINE 10 MG TAB PEG SCH (07:38)
[2022-02-11] MEDS: METOPROLOL TART 50 MG TAB PEG SCH ×3 (07:38→20:27)
[2022-02-11] MEDS: NICOTINE 21MG/24HR 1 EA TRANSDERMAL TD SCH (07:42)
[2022-02-11] MEDS: LEVEMIR (INSULIN DETEMIR) 1 UNITS/0.01ML SC SCH ×2 (07:43→20:29)
[2022-02-11] MEDS: ACETAMINOPHEN 325 MG/10.15 ML UDC GT SCH ×3 (07:43→20:29)
[2022-02-11] MEDS: TIOTROPIUM INHALER/CAPSULE (SPIRIVA) INH SCH (08:27)
[2022-02-11] MEDS: COMBIVENT RESPIMAT 100-20MCG INHALER 4GM INH SCH ×4 (08:27→19:50)
[2022-02-11] MEDS ORDERED: cloNIDine HCL 0.3 MG/24 HR PATCH TOP SCH (09:00)
[2022-02-11] MEDS ORDERED: cloNIDine 0.1MG TABLET PO PRN (13:00)
[2022-02-11 14:00] VITALS: BP 128/82
[2022-02-11 15:58] VITALS: BP 138/82
[2022-02-11 19:54] VITALS: BP 139/89
[2022-02-11] MEDS: lisinopriL 40MG TAB PO SCH (20:27)
[2022-02-11] MEDS: zolPIDEM TARTRATE 5 MG TAB PEG SCH (20:27)
[2022-02-12 05:46] VITALS: BP 137/84
[2022-02-12] MEDS: **hydrALAZINE** 50 MG TAB PO SCH ×4 (06:08→23:41)
[2022-02-12] MEDS: COMBIVENT RESPIMAT 100-20MCG INHALER 4GM INH SCH ×4 (07:24→19:49)
[2022-02-12] MEDS: TIOTROPIUM INHALER/CAPSULE (SPIRIVA) INH SCH (07:24)
[2022-02-12] MEDS: INSULIN LISPRO (NovoLOG) PER UNIT SC SCH ×4 (07:30→21:00)
[2022-02-12] MEDS: LEVEMIR (INSULIN DETEMIR) 1 UNITS/0.01ML SC SCH ×2 (09:00→21:08)
[2022-02-12] MEDS: REMEDY PHYTOPLEX Z-GUARD PASTE 113GM TUBE (FROM STOREROOM PRODUCT) TOP SCH ×4 (09:00→21:00)
[2022-02-12] MEDS: SUCRALFATE SUSP 1GM/10ML UD PEG SCH ×4 (09:03→21:06)
[2022-02-12] MEDS: MAGIC MOUTHWASH SUSPENSION BTL SSP SCH ×3 (09:03→18:03)
[2022-02-12] MEDS: MECLIZINE 25 MG TABLET PEG SCH ×3 (09:05→21:08)
[2022-02-12] MEDS: ASPIRIN 81 MG CHEW TABLET PEG SCH (09:05)
[2022-02-12] MEDS: LACTOBACILLUS ACIDOPHILUS CAP (BACID) PEG SCH ×3 (09:05→21:07)
[2022-02-12] MEDS: ACETAMINOPHEN 325 MG/10.15 ML UDC GT SCH ×3 (09:05→21:06)
[2022-02-12] MEDS: LORATADINE 10 MG TAB PEG SCH (09:05)
[2022-02-12] MEDS: ATORVASTATIN 20 MG TAB PEG SCH (09:06)
[2022-02-12] MEDS: OMEPRAZOLE SUSPENSION 20MG 10ML ORAL SYRINGE PEG SCH ×2 (09:06→21:06)
[2022-02-12] MEDS: VENLAFAXINE 37.5 MG TAB PEG SCH ×2 (09:06→21:07)
[2022-02-12] MEDS: CLOPIDOGREL 75 MG TAB PEG SCH (09:07)
[2022-02-12] MEDS: METOPROLOL TART 50 MG TAB PEG SCH ×3 (09:07→21:08)
[2022-02-12] MEDS: FUROSEMIDE 20 MG TAB PO SCH (09:07)
[2022-02-12] MEDS: ACYCLOVIR 200 MG CAPSULE PEG SCH ×3 (09:07→21:07)
[2022-02-12] MEDS: ENOXAPARIN 40MG/0.4ML SYRINGE (J1650 PER 10MG) SC SCH (09:08)
[2022-02-12] MEDS: NICOTINE 21MG/24HR 1 EA TRANSDERMAL TD SCH (09:09)
[2022-02-12] MEDS: VANICREAM MOISTURIZING SKIN CREAM 113GM TUBE TOP SCH ×2 (09:10→21:09)
[2022-02-12] MEDS: POLYVINYL ALCOHOL OPHTH SOLN 15 ML(LIQUITEARS) OU SCH ×3 (09:10→21:10)
[2022-02-12 11:41] VITALS: BP 128/86
[2022-02-12 14:00] VITALS: BP 128/82
[2022-02-12 17:00] VITALS: BP 150/108
[2022-02-12 20:00] VITALS: BP 166/90
[2022-02-12] MEDS: zolPIDEM TARTRATE 5 MG TAB PEG SCH (21:07)
[2022-02-12] MEDS: lisinopriL 40MG TAB PO SCH (21:08)
[2022-02-13] MEDS: **hydrALAZINE** 50 MG TAB PO SCH ×3 (05:40→18:13)
[2022-02-13 06:00] VITALS: BP 140/80
[2022-02-13 06:56] LABS: BASO % 0.5 % (0.0-1.0); EOS # 0.2 10^3/uL (0.0-0.5); EOS % 2.6 % (0.0-3.0); HEMATOCRIT 42.8 % (42.0-52.0); HEMOGLOBIN 13.7 g/dl (13.5-17.5); LYMPH % 24.1 % (24.0-44.0); MEAN CORPUSCULAR HEMOGLOBIN 27.3 pg (27.0-33.0); MEAN CORPUSCULAR VOLUME 85.4 fl (80.0-96.0); MONO # 0.7 10^3/uL (0.0-0.8); MONO % 8.9 % (2.0-8.0); NEUTROPHILS # 5.1 10^3/uL (1.5-8.5); NEUTROPHILS % 63.4 % (36.0-66.0); PLATELET COUNT, AUTOMATED 277 10^3/uL (150-450); RED BLOOD COUNT 5.01 10^6/uL (4.30-6.10); WHITE BLOOD COUNT 8.1 10^3/uL (4.0-10.0)
[2022-02-13 07:12] LABS: BLOOD UREA NITROGEN 9 MG/DL (7-18); CALCIUM LEVEL 11.6 MG/DL (8.5-10.1); CARBON DIOXIDE LEVEL 28 MEQ/L (21-32); CHLORIDE LEVEL 106 MEQ/L (98-107); CREATININE FOR GFR 0.65 MG/DL (0.70-1.30); GLOMERULAR FILTRATION RATE > 60.0 (>60); GLUCOSE, FASTING 107 MG/DL (70-100); POTASSIUM SERUM 4.4 MEQ/L (3.5-5.1); SODIUM LEVEL 142 MEQ/L (136-145)
[2022-02-13] MEDS: SUCRALFATE SUSP 1GM/10ML UD PEG SCH ×4 (07:30→20:12)
[2022-02-13] MEDS: COMBIVENT RESPIMAT 100-20MCG INHALER 4GM INH SCH ×4 (07:49→19:34)
[2022-02-13] MEDS: TIOTROPIUM INHALER/CAPSULE (SPIRIVA) INH SCH (07:49)
[2022-02-13 07:53] LABS: CA19-9 TUMOR MARKER,CARBOHYDRA 2.6 U/ML (<35.0)
[2022-02-13] MEDS: REMEDY PHYTOPLEX Z-GUARD PASTE 113GM TUBE (FROM STOREROOM PRODUCT) TOP SCH ×4 (09:00→20:14)
[2022-02-13] MEDS: VENLAFAXINE 37.5 MG TAB PEG SCH ×2 (09:01→20:17)
[2022-02-13] MEDS: NICOTINE 21MG/24HR 1 EA TRANSDERMAL TD SCH (09:01)
[2022-02-13] MEDS: ACETAMINOPHEN 325 MG/10.15 ML UDC GT SCH ×3 (09:01→20:14)
[2022-02-13] MEDS: ENOXAPARIN 40MG/0.4ML SYRINGE (J1650 PER 10MG) SC SCH (09:01)
[2022-02-13] MEDS: OMEPRAZOLE SUSPENSION 20MG 10ML ORAL SYRINGE PEG SCH ×2 (09:02→20:14)
[2022-02-13] MEDS: ASPIRIN 81 MG CHEW TABLET PEG SCH (09:02)
[2022-02-13] MEDS: LACTOBACILLUS ACIDOPHILUS CAP (BACID) PEG SCH ×3 (09:02→20:12)
[2022-02-13] MEDS: MECLIZINE 25 MG TABLET PEG SCH ×3 (09:02→20:13)
[2022-02-13] MEDS: CLOPIDOGREL 75 MG TAB PEG SCH (09:02)
[2022-02-13] MEDS: ATORVASTATIN 20 MG TAB PEG SCH (09:02)
[2022-02-13] MEDS: FUROSEMIDE 20 MG TAB PO SCH (09:03)
[2022-02-13] MEDS: LORATADINE 10 MG TAB PEG SCH (09:03)
[2022-02-13] MEDS: METOPROLOL TART 50 MG TAB PEG SCH ×3 (09:03→20:12)
[2022-02-13] MEDS: ACYCLOVIR 200 MG CAPSULE PEG SCH ×3 (09:03→20:13)
[2022-02-13] MEDS: LEVEMIR (INSULIN DETEMIR) 1 UNITS/0.01ML SC SCH ×2 (09:04→20:15)
[2022-02-13] MEDS: INSULIN LISPRO (NovoLOG) PER UNIT SC SCH ×4 (09:05→20:14)
[2022-02-13] MEDS: POLYVINYL ALCOHOL OPHTH SOLN 15 ML(LIQUITEARS) OU SCH ×3 (09:05→20:14)
[2022-02-13] MEDS: MAGIC MOUTHWASH SUSPENSION BTL SSP SCH ×3 (09:06→18:14)
[2022-02-13] MEDS: VANICREAM MOISTURIZING SKIN CREAM 113GM TUBE TOP SCH ×2 (09:09→20:15)
[2022-02-13 14:00] VITALS: BP 155/85
[2022-02-13 19:55] VITALS: BP 148/86
[2022-02-13] MEDS: lisinopriL 40MG TAB PO SCH (20:12)
[2022-02-13] MEDS: zolPIDEM TARTRATE 5 MG TAB PEG SCH (20:13)
[2022-02-14 05:58] VITALS: BP_SYST 154; BP_DIAS 86; BP_DIAS 88
[2022-02-14] MEDS: **hydrALAZINE** 50 MG TAB PO SCH ×5 (06:02→23:46)
[2022-02-14] MEDS: MAGIC MOUTHWASH SUSPENSION BTL SSP SCH ×3 (07:33→17:14)
[2022-02-14] MEDS: METOPROLOL TART 50 MG TAB PEG SCH ×3 (07:34→19:45)
[2022-02-14] MEDS: NICOTINE 21MG/24HR 1 EA TRANSDERMAL TD SCH (07:34)
[2022-02-14] MEDS: POLYVINYL ALCOHOL OPHTH SOLN 15 ML(LIQUITEARS) OU SCH ×3 (07:34→19:46)
[2022-02-14] MEDS: ENOXAPARIN 40MG/0.4ML SYRINGE (J1650 PER 10MG) SC SCH (07:35)
[2022-02-14] MEDS: LACTOBACILLUS ACIDOPHILUS CAP (BACID) PEG SCH ×3 (07:35→19:43)
[2022-02-14] MEDS: OMEPRAZOLE SUSPENSION 20MG 10ML ORAL SYRINGE PEG SCH ×2 (07:35→19:42)
[2022-02-14] MEDS: ASPIRIN 81 MG CHEW TABLET PEG SCH (07:35)
[2022-02-14] MEDS: MECLIZINE 25 MG TABLET PEG SCH ×3 (07:35→19:43)
[2022-02-14] MEDS: ATORVASTATIN 20 MG TAB PEG SCH (07:35)
[2022-02-14] MEDS: VENLAFAXINE 37.5 MG TAB PEG SCH ×2 (07:36→19:44)
[2022-02-14] MEDS: ACETAMINOPHEN 325 MG/10.15 ML UDC GT SCH ×3 (07:36→19:43)
[2022-02-14] MEDS: SUCRALFATE SUSP 1GM/10ML UD PEG SCH ×4 (07:36→19:42)
[2022-02-14] MEDS: CLOPIDOGREL 75 MG TAB PEG SCH (07:36)
[2022-02-14] MEDS: LORATADINE 10 MG TAB PEG SCH (07:36)
[2022-02-14] MEDS: FUROSEMIDE 20 MG TAB PO SCH (07:36)
[2022-02-14] MEDS: ACYCLOVIR 200 MG CAPSULE PEG SCH ×3 (07:36→19:45)
[2022-02-14] MEDS: INSULIN LISPRO (NovoLOG) PER UNIT SC SCH ×4 (07:37→19:34)
[2022-02-14] MEDS: LEVEMIR (INSULIN DETEMIR) 1 UNITS/0.01ML SC SCH ×2 (07:37→19:43)
[2022-02-14] MEDS: VANICREAM MOISTURIZING SKIN CREAM 113GM TUBE TOP SCH ×2 (07:37→19:46)
[2022-02-14] MEDS: REMEDY PHYTOPLEX Z-GUARD PASTE 113GM TUBE (FROM STOREROOM PRODUCT) TOP SCH ×4 (07:37→19:46)
[2022-02-14] MEDS: TIOTROPIUM INHALER/CAPSULE (SPIRIVA) INH SCH (07:41)
[2022-02-14] MEDS: COMBIVENT RESPIMAT 100-20MCG INHALER 4GM INH SCH ×4 (07:41→19:48)
[2022-02-14 12:13] VITALS: BP 137/75
[2022-02-14 14:00] VITALS: BP 143/86
[2022-02-14 17:13] VITALS: BP 137/71
[2022-02-14] MEDS: zolPIDEM TARTRATE 5 MG TAB PEG SCH (19:42)
[2022-02-14] MEDS: lisinopriL 40MG TAB PO SCH (19:45)
[2022-02-14 20:00] VITALS: BP 180/98
[2022-02-14 21:09] VITALS: BP 148/94
[2022-02-15 06:00] VITALS: BP 142/96
[2022-02-15 06:01] VITALS: BP 142/96
[2022-02-15] MEDS: **hydrALAZINE** 50 MG TAB PO SCH (06:01)
[2022-02-15] MEDS: TIOTROPIUM INHALER/CAPSULE (SPIRIVA) INH SCH (07:32)
[2022-02-15] MEDS: COMBIVENT RESPIMAT 100-20MCG INHALER 4GM INH SCH (07:32)
[2022-02-15] MEDS ORDERED: MECL-86 PEG (08:05)
[2022-02-15] MEDS ORDERED: VENL150C43 PO (08:05)
[2022-02-15] MEDS ORDERED: ACYC200C8 PEG (08:05)
[2022-02-15] MEDS ORDERED: HYDR50TA PO (08:05)
[2022-02-15] MEDS ORDERED: FURO20TA2 PO (08:05)
[2022-02-15] MEDS ORDERED: COMBAER6 INH (08:05)
[2022-02-15] MEDS ORDERED: LOPR1TAB6 PEG (08:05)
[2022-02-15] MEDS ORDERED: TIOT18INH INH (08:05)
[2022-02-15] MEDS ORDERED: AMBI5TAB PEG (08:05)
[2022-02-15] MEDS ORDERED: ASPI81CH8 PEG (08:05)
[2022-02-15] MEDS ORDERED: NICO21PAT TD (08:05)
[2022-02-15] MEDS ORDERED: LISI40TA4 PO (08:05)
[2022-02-15] MEDS ORDERED: ATOR80TA59 PEG (08:05)
[2022-02-15] MEDS ORDERED: AMLO1TAB25 PEG (08:05)
[2022-02-15] MEDS ORDERED: SUCR1ORA PEG (08:05)
[2022-02-15] MEDS ORDERED: CLOP75TA2 PEG (08:05)
[2022-02-15] MEDS: INSULIN LISPRO (NovoLOG) PER UNIT SC SCH (08:19)
[2022-02-15] MEDS: MAGIC MOUTHWASH SUSPENSION BTL SSP SCH (08:19)
[2022-02-15] MEDS: SUCRALFATE SUSP 1GM/10ML UD PEG SCH (08:19)
[2022-02-15] MEDS: LEVEMIR (INSULIN DETEMIR) 1 UNITS/0.01ML SC SCH (08:19)
[2022-02-15] MEDS: NICOTINE 21MG/24HR 1 EA TRANSDERMAL TD SCH (08:20)
[2022-02-15] MEDS: LORATADINE 10 MG TAB PEG SCH (08:21)
[2022-02-15] MEDS: ENOXAPARIN 40MG/0.4ML SYRINGE (J1650 PER 10MG) SC SCH (08:21)
[2022-02-15] MEDS: OMEPRAZOLE SUSPENSION 20MG 10ML ORAL SYRINGE PEG SCH (08:21)
[2022-02-15] MEDS: ACETAMINOPHEN 325 MG/10.15 ML UDC GT SCH (08:21)
[2022-02-15] MEDS: LACTOBACILLUS ACIDOPHILUS CAP (BACID) PEG SCH (08:22)
[2022-02-15] MEDS: ASPIRIN 81 MG CHEW TABLET PEG SCH (08:22)
[2022-02-15] MEDS: ATORVASTATIN 20 MG TAB PEG SCH (08:22)
[2022-02-15] MEDS: ACYCLOVIR 200 MG CAPSULE PEG SCH (08:22)
[2022-02-15] MEDS: MECLIZINE 25 MG TABLET PEG SCH (08:22)
[2022-02-15] MEDS: CLOPIDOGREL 75 MG TAB PEG SCH (08:22)
[2022-02-15] MEDS: FUROSEMIDE 20 MG TAB PO SCH (08:22)
[2022-02-15] MEDS: POLYVINYL ALCOHOL OPHTH SOLN 15 ML(LIQUITEARS) OU SCH (08:23)
[2022-02-15] MEDS: REMEDY PHYTOPLEX Z-GUARD PASTE 113GM TUBE (FROM STOREROOM PRODUCT) TOP SCH (08:23)
[2022-02-15] MEDS: VENLAFAXINE 37.5 MG TAB PEG SCH (08:23)
[2022-02-15] MEDS: METOPROLOL TART 50 MG TAB PEG SCH (08:23)
[2022-02-15] MEDS: VANICREAM MOISTURIZING SKIN CREAM 113GM TUBE TOP SCH (08:24)
== END 2022-02-15 11:10 | disposition home or self-care (01) | DRG 58 ==
LOC: M PM&R 15:10
PROVIDERS: ADMIT Physical Medicine & Rehabilitation; ATTEND Physical Medicine & Rehabilitation
DX: I69.354 Hemiplegia and hemiparesis following cerebral infarction affecting left non-dominant side (principal); R13.10 Dysphagia, unspecified; E87.1 Hypo-osmolality and hyponatremia; Z93.1 Gastrostomy status; E83.52 Hypercalcemia; I10 Essential (primary) hypertension; K86.89 Other specified diseases of pancreas; I69.391 Dysphagia following cerebral infarction; I69.393 Ataxia following cerebral infarction; E78.5 Hyperlipidemia, unspecified; R80.9 Proteinuria, unspecified; G47.00 Insomnia, unspecified; J40 Bronchitis, not specified as acute or chronic; B00.2 Herpesviral gingivostomatitis and pharyngotonsillitis; E11.9 Type 2 diabetes mellitus without complications; F17.200 Nicotine dependence, unspecified, uncomplicated; Z74.09 Other reduced mobility; Z74.1 Need for assistance with personal care; Z79.82 Long term (current) use of aspirin; Z79.02 Long term (current) use of antithrombotics/antiplatelets; Z79.899 Other long term (current) drug therapy